=== PATIENT | male | born 1965 | race Hispanic/Latino ===

== ENCOUNTER 2018-03-26 15:04 | Observation (INO) | payer BC ==
[2018-03-26 15:34] LABS: #Basophils 0.1 thou/uL (0.0-0.2); #Eosinphils 0.2 thou/uL (0.0-0.7); #Lymphocytes 3.2 thou/uL (1.20-3.40); #Monocytes 0.5 thou/uL (0.11-0.59); #Neutrophils 4.7 thou/uL (1.40-6.50); %Basophils 1.2 % (0.0-1.0); %Eosinophils 2.2 % (0.0-10.0); %Lymphocytes 36.9 % (21.0-51.0); %Monocytes 5.6 % (0.0-10.0); %Neutrophils 54.2 % (42.0-75.0); Hemoglobin 18.1 g/dL (14.0-18.0); Mean Corpuscular HGB CONC 34.1 g/dL (32.0-36.0); Mean Corpuscular Hemoglobin 33.7 pg (27.0-31.0); Mean Corpuscular Volume 98.7 fL (78.0-98.0); Platelet Count 320 thou/uL (130-400); RBC Distribution Width 11.6 % (11.5-14.5); Red Blood Cell (RBC) Count 5.37 mill/uL (4.70-6.10); White Blood Cell (WBC) Count 8.7 thou/uL (4.8-10.8)
[2018-03-26] MEDS ORDERED: Nitroglycerin 2% Ointment 1 INCH/1 GM Packet ONE (15:53)
[2018-03-26 15:58] LABS: ALT (SGPT) 43 U/L (8-55); AST (SGOT) 30 U/L (5-34); Alkaline Phosphatase 85 U/L (40-150); Anion Gap 14 mmol/L (10-20); BUN (Urea Nitrogen) 17 mg/dL (8.4-25.7); Bilirubin, Total 0.8 mg/dL (0.2-1.2); Calc. Creatinine Clearance 0 mL/min (70-130); Calcium 10.7 mg/dL (7.8-10.44); Carbon Dioxide 25 mmol/L (22-29); Chloride 105 mmol/L (98-107); Estimated GFR-MDRD 78; Globulin 3.5 g/dL (2.4-3.5); Glucose 123 mg/dL (70-105); Potassium 4.4 mmol/L (3.5-5.1); Protein, Total 8.5 g/dL (6.0-8.3); Sodium 140 mmol/L (136-145)
[2018-03-26 16:02] LABS: CKMB 1.5 ng/mL (0-6.6); Troponin I 0.097 ng/mL (< 0.028)
--- NOTE | 2018-03-26 16:05 | RAD ---
CHEST ONE VIEW: 03/26/18 HISTORY: Pain. COMPARISON: None. FINDINGS: Portable upright chest: Normal cardiac silhouette. The lung volumes are slightly diminished. No consolidation or mass. No pne umothorax or osseous abnormalities. IMPRESSION: No acute cardiopulmonary process. POS: [facility]
[2018-03-26] MEDS ORDERED: Ketorolac Tromethamine 30 MG/ML VIAL ONE (16:30)
[2018-03-26 17:48] LABS: Acetaminophen Less than 6.0 mcg/mL (10.0-30.0); Alcohol Less than 10 mg/dL (Less than 10); Salicylate Less than 8.0 mg/dL (15.0-30.0)
[2018-03-26 18:19] LABS: Amphetamine Not Detected (NotDetected); Barbiturates Screen Not Detected (NotDetected); Benzodiazepine Screen Not Detected (NotDetected); Cocaine Metabolite Screen Not Detected (NotDetected); Medtox Control Line Valid? VALID (VALID); Medtox Reader # READER 1; Methadone Not Detected (NotDetected); Methamphetamine Not Detected (NotDetected); Opiate Screen Not Detected (NotDetected); Oxycodone Screen Not Detected (NotDetected); Phencyclidine (PCP) Not Detected (NotDetected); THC/Cannabinoid Screen Not Detected (NotDetected); Tricyclic Screen Not Detected (NotDetected)
[2018-03-26] MEDS ORDERED: Guaifenesin DM 100-10/5 ML UDCUP PO PRN (18:30)
[2018-03-26] MEDS ORDERED: Acetaminophen 325 MG TAB PO PRN (18:30)
[2018-03-26] MEDS ORDERED: Clopidogrel Bisulfate 300 MG TAB PO SCH (18:30)
[2018-03-26 18:49] LABS: Cardiac Risk 4.7 (Less than 4.5)
[2018-03-26 18:53] LABS: Troponin I 0.091 ng/mL (< 0.028)
[2018-03-26 21:57] VITALS: BMI 29.2
[2018-03-26 22:13] LABS: Troponin I 0.092 ng/mL (< 0.028)
[2018-03-26] MEDS: Pravastatin Sodium 20 MG TAB PO SCH (23:09)
[2018-03-26] MEDS: Metoprolol Tartrate 25 MG TAB PO SCH (23:09)
[2018-03-26] MEDS: Famotidine 20 MG TAB PO SCH (23:09)
[2018-03-26] MEDS: Nitroglycerin 2% Ointment 1 INCH/1 GM Packet TOP SCH (23:10)
[2018-03-26] MEDS: Sodium Chloride 0.9% 1,000 ML IV SCH (23:17)
--- NOTE | 2018-03-27 01:16 | HP ---
REASON FOR ADMISSION: Chest pain. HISTORY OF PRESENT ILLNESS: The patient gives history of retrosternal chest pain from the last 3 days. These pains come on irrespective of exertion. He in fact had gone to [place], [place] on 03/23 and was under observation for a night. They ruled him out with enzymes and discharged him. He has no cough or fever. No complaints of PND or orthopnea. PAST MEDICAL AND SURGICAL HISTORY: He has had prior stress test done 2 years back and a stent placed by Dr. Mcdaniel. He last saw Jonas in November. Hypertension, dyslipidemia, gout. CURRENT MEDICATIONS: Patient is on Lopressor extended release 50 mg daily, Diovan 320 mg daily, allopurinol 100 mg p.o. daily, Vascepa 1 gram p.o. twice daily, Pravachol 20 mg p.o. daily. ALLERGIES: No known drug allergies. PERSONAL HISTORY: Does not abuse alcohol or drugs. No history of smoking. 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 FAMILY HISTORY: Mother of [place] at the age of 78 years. Father was alcoholic and in his 50s from its complications. CODE STATUS: FULL. REVIEW OF SYSTEMS: The following complete review of systems was negative, unless otherwise mentioned in the HPI or below: Constitutional: Weight loss or gain, ability to conduct usual activities. Skin: Rash, itching. Eyes: Double vision, pain. ENT/Mouth: Nose bleeding, neck stiffness, pain, tenderness. Cardiovascular: Palpitations, dyspnea on exertion, orthopnea. Respiratory: Shortness of breath, wheezing, cough, hemoptysis, fever or night sweats. Gastrointestinal: Poor appetite, abdominal pain, heartburn, nausea, vomiting, constipation, or diarrhea. Genitourinary: Urgency, frequency, dysuria, nocturia. Musculoskeletal: Pain, swelling. Neurologic/Psychiatric: Anxiety, depression. Allergy/Immunologic: Skin rash, bleeding tendency. PHYSICAL EXAMINATION: GENERAL: The patient is a 52-year-old male who is currently chest pain free. VITAL SIGNS: Blood pressure 170/90, pulse 66 per minute, respiratory rate 20 per minute, temperature 98.4 degrees Fahrenheit, saturating 98% on room air. NECK: Supple. No elevated JVD. HEENT: Eyes: Extraocular muscles intact. Pupils reacting to light. Oral cavity mucous membranes are moist. No exudates or congestion. CARDIOVASCULAR: S1, S2 heard. Regular rhythm. RESPIRATORY: Air entry 1+ bilaterally. No rales or rhonchi. ABDOMEN: Soft, bowel sounds heard. No tenderness, rigidity, or guarding. EXTREMITIES: No peripheral edema or calf tenderness. VASCULAR SYSTEM: Peripheral pulses 2+ bilateral. No ischemic ulcerations or gangrene. CENTRAL NERVOUS SYSTEM: No gross focal deficits noted. Patient is alert, awake , oriented well. PSYCHIATRIC: The patient's mood is euthymic. No hallucinations or delusions. LABORATORY AND X-RAY FINDINGS: Troponin I was 0.09, CK-MB 1.5, albumin 5.0, BUN 17, creatinine 1.0, serum glucose 123. Electrolytes are stable. White count of 8, H&H 18 and 53, platelet count is 320,000 with 54% neutrophils. Chest x-ray done shows no acute cardiopulmonary abnormalities. EKG done shows normal sinus rhythm at 75 beats per minute. There is poor R-wave progression and nonspecific ST-T wave changes. CLINICAL IMPRESSION AND PLAN: The patient will be under observation on telemetry for chest pain with indeterminate cardiac enzymes and prior history of a stent placed [address] Mcdaniel. The patient has had chest pain for the last 3 days now off and on. In view of this history, we will obtain Cardiology consultation as well. He is not sure if he is taking aspirin. He does not take Plavix or Brilinta. We will place him on normal saline at 60 mL per hour and nitro paste half inch q.8 hourly, Lopressor 12.5 mg twice daily along with a full dose of Plavix and 75 mg from tomorrow and aspirin as well. We will continue his Pravachol and Diovan at 160 mg daily. We will obtain echo with 2D Doppler for LV function in view of indeterminate cardiac enzymes and prior coronary artery disease and will obtain a Cardiolite stress test. He will be kept n.p.o. after midnight. JODI
[2018-03-27] MEDS: Nitroglycerin 2% Ointment 1 INCH/1 GM Packet TOP SCH (05:30)
[2018-03-27 05:43] LABS: #Basophils 0.1 thou/uL (0.0-0.2); #Eosinphils 0.4 thou/uL (0.0-0.7); #Lymphocytes 3.6 thou/uL (1.20-3.40); #Monocytes 0.5 thou/uL (0.11-0.59); #Neutrophils 5.4 thou/uL (1.40-6.50); %Basophils 0.9 % (0.0-1.0); %Eosinophils 3.9 % (0.0-10.0); %Lymphocytes 35.7 % (21.0-51.0); %Monocytes 5.3 % (0.0-10.0); %Neutrophils 54.2 % (42.0-75.0); Mean Corpuscular HGB CONC 33.4 g/dL (32.0-36.0); Mean Corpuscular Hemoglobin 33.1 pg (27.0-31.0); Mean Corpuscular Volume 99.2 fL (78.0-98.0); Mean Platelet Volume 7.2 fL (7.4-10.4); Platelet Count 297 thou/uL (130-400); RBC Distribution Width 11.5 % (11.5-14.5); Red Blood Cell (RBC) Count 4.84 mill/uL (4.70-6.10)
[2018-03-27 05:45] LABS: Anion Gap 12 mmol/L (10-20); BUN (Urea Nitrogen) 22 mg/dL (8.4-25.7); Calc. Creatinine Clearance 113 mL/min (70-130); Calcium 9.7 mg/dL (7.8-10.44); Carbon Dioxide 25 mmol/L (22-29); Cardiac Risk 4.6 (Less than 4.5); Chloride 106 mmol/L (98-107); Cholesterol 174 mg/dl (< 200 Desired); Estimated GFR-MDRD Greater than 90; Glucose 112 mg/dL (70-105); HDL Cholesterol 38 mg/dL (>60 Neg Risk); LDL Cholesterol, Calculated 104 mg/dL; Potassium 3.9 mmol/L (3.5-5.1); Sodium 139 mmol/L (136-145); Triglycerides 161 mg/dL (Less than 150)
[2018-03-27] MEDS ORDERED: Enoxaparin Sodium 40 MG/0.4 ML SYRINGE SC SCH (09:00)
[2018-03-27] MEDS ORDERED: Clopidogrel Bisulfate 75 MG TAB PO SCH (09:00)
--- NOTE | 2018-03-27 11:28 | CON ---
DATE OF CONSULTATION: 03/27/2018 HISTORY OF PRESENT ILLNESS: Patient is a 52-year-old gentleman with a history of coronary artery dis ease who presented with weakness and chest discomfort. The patient has recent history of coronary ar trudy disease. He states approximately two years ago he underwent cardiac catheterization and PTCA an d stent placement by Dr. Mcdaniel. The patient at that time presented with progressive angina. The pa belkis has been doing completely free of chest discomfort. He states that he was at work when he sudd enly felt extremely weak and lightheaded. The patient developed midsternal chest discomfort. He toma t to the local emergency room. He was found to be markedly hypertensive. The patient states that he received medication which lowered his blood pressure and his chest pain resolved. The patient denie s have any further chest discomfort. PAST MEDICAL HISTORY: Significant for, 1. Hypertension. 2. Coronary artery disease. 3. Dyslipidemia. PAST SURGICAL HISTORY: None. FAMILY HISTORY: Positive family history of heart disease. MEDICATIONS: Diovan 320 b.i.d., Vascepa 2 mg b.i.d., allopurinol 100 daily, metoprolol 50 XL daily, Pravachol 20. REVIEW OF SYSTEMS: Ten-point system otherwise unremarkable. No history of easy bruising or bleeding , bright red blood per rectum, hematuria or dysuria. PHYSICAL EXAMINATION: GENERAL: This is a well-developed gentleman in no acute distress. VITAL SIGNS: Blood pressure 144/83. NECK: No jugular distention, no carotid bruits. LUNGS: Clear to auscultation. HEART: Regular rate and rhythm, normal S1, S2, no murmurs. ABDOMEN: Nondistended. EXTREMITIES: Showed no edema. SKIN: Warm and dry. NEUROLOGIC: Nonfocal. VASCULAR: Radial pulses are 2+. LABORATORY DATA AND IMAGING DATA: White blood count 10.0, hemoglobin 16.0, hematocrit 41.1, platelet s 297. Sodium was 139, potassium 3.9, chloride 106, bicarbonate 25, BUN 22, creatinine is 0.86, trop onin was 0.092. His EKG reveals him to have normal sinus rhythm with left axis deviation, otherwise normal ECG. IMPRESSION: 1. Hypertensive crisis. 2. Chest pain. 3. History of percutaneous transluminal coronary angioplasty and stent placement. 4. Dyslipidemia. This gentleman presents with markedly elevated blood pressure and chest discomfort. His EKG showed n o acute changes. The patient is scheduled to undergo a Lexiscan stress test. We will see if there i s any evidence of ischemia. From a cardiac standpoint, the patient does a very physical job and prob ably has elevated blood pressure. We will add Norvasc to his medical regimen. We will follow this p atient with you through his hospitalization.
[2018-03-27] MEDS: Famotidine 20 MG TAB PO SCH ×2 (11:34→20:41)
[2018-03-27] MEDS: Allopurinol 100 MG TAB PO SCH (11:34)
[2018-03-27] MEDS: Valsartan 80 MG TAB PO SCH (11:34)
[2018-03-27] MEDS: Metoprolol Tartrate 25 MG TAB PO SCH ×2 (11:35→20:40)
[2018-03-27] MEDS: Aspirin 325 MG TAB PO SCH (11:35)
--- NOTE | 2018-03-27 11:50 | PDOC.PN ---
- Subjective Encounter Start Date: 03/27/18 Encounter Start Time: 10:00 Subjective: is getting stress test done, no chest pain or sob now - Objective Resuscitation Status: Resuscitation Status FULL:Full Resuscitation MAR Reviewed: Yes Vital Signs & Weight: Vital Signs (12 hours) Temp Pulse Resp BP Pulse Ox 03/27/18 07:49 98.5 F 70 18 144/83 H 93 L 03/27/18 04:54 98.0 F 88 16 132/87 94 L Weight Weight 175 lb 9.6 oz I&O: 03/26/18 03/27/18 03/28/18 06:59 06:59 06:59 Intake Total 609 Balance 609 Result Diagrams: 03/27/18 05:03 03/27/18 05:03 Phys Exam - Physical Examination HEENT: PERRLA, moist MMs Neck: no JVD, supple Respiratory: no wheezing, no rales Cardiovascular: RRR, no significant murmur Gastrointestinal: soft, non-tender, positive bowel sounds Musculoskeletal: no edema, pulses present Neurological: non-focal, moves all 4 limbs Psychiatric: normal affect, A&O x 3 Dx/Plan (1) Chest pain Code(s): R07.9 - CHEST PAIN, UNSPECIFIED Status: Acute Qualifiers: Chest pain type: unspecified Qualified Code(s): R07.9 - Chest pain, unspecified (2) CAD (coronary artery disease) Code(s): I25.10 - ATHSCL HEART DISEASE OF [place] CORONARY ARTERY W/O ANG PCTRS Status: Chronic Qualifiers: Coronary Disease-Associated Artery/Lesion type: [place] artery [place] vs. transplanted heart: [place] heart Associated angina: with stable angina Qualified Code(s): I25.118 - Atherosclerotic heart disease of [place] coronary artery with other forms of angina pectoris (3) Hypertensive urgency Code(s): I16.0 - HYPERTENSIVE URGENCY Status: Acute (4) Dyslipidemia Code(s): E78.5 - HYPERLIPIDEMIA, UNSPECIFIED Status: Chronic - Plan await stress test results -: has indeterminate enzymes -: dc plan per cardiology advice -: is on asp, plavix, pravastatin, lopressor, cozaar and norvasc * . Review of Systems - Medications/Allergies Allergies/Adverse Reactions: Allergies Allergy/AdvReac Type Severity Reaction Status Date / Time No Known Drug Allergies Allergy Verified 03/27/18 04:24 Medications: Current Medications Acetaminophen (Tylenol) 650 mg PO Q4H PRN PRN Reason: Headache/Fever/Mild Pain (1-3) Last Admin: 03/26/18 23:23 Dose: 650 mg Allopurinol (Zyloprim) 100 mg PO DAILY [facility] Last Admin: 03/27/18 11:34 Dose: 100 mg Amlodipine Besylate (Norvasc) 5 mg PO 1200 [facility] Last Admin: 03/27/18 11:34 Dose: 5 mg Aspirin (Aspirin) 325 mg PO DAILY [facility] Last Admin: 03/27/18 11:35 Dose: 325 mg Enoxaparin Sodium (Lovenox) 40 mg SC 0900 [facility] Famotidine (Pepcid) 20 mg PO BID [facility] Last Admin: 03/27/18 11:34 Dose: 20 mg Guaifenesin/Dextromethorphan (Robitussin Dm) 15 ml PO Q4H PRN PRN Reason: Cough Sodium Chloride (Normal Saline 0.9%) 1,000 mls @ 60 mls/hr IV .[id number] [facility] Stop: 03/28/18 08:27 Last Admin: 03/26/18 23:17 Dose: 1,000 mls Metoprolol Tartrate (Lopressor) 12.5 mg PO BID [facility] Last Admin: 03/27/18 11:35 Dose: 12.5 mg Pravastatin Sodium (Pravachol) 20 mg PO HS [facility] Last Admin: 03/26/18 23:09 Dose: 20 mg Sodium Chloride (Flush - Normal Saline) 10 ml IVF Q12HR [facility] Last Admin: 03/27/18 11:35 Dose: 10 ml Sodium Chloride (Flush - Normal Saline) 10 ml IVF PRN PRN PRN Reason: Saline Flush Valsartan (Diovan) 160 mg PO DAILY [facility] Last Admin: 03/27/18 11:34 Dose: 160 mg
[2018-03-27] MEDS ORDERED: Amlodipine 5 MG TAB PO SCH (12:00)
--- NOTE | 2018-03-27 12:23 | NM ---
CARDIAC SPECT: CLINICAL HISTORY: 52-year-old female with chest pain, coronary artery disease, hypertension, and dyslipidemia. TECHNIQUE: A myocardial perfusion scan was performed using the single isotope one day protocol with technetium-9 9m sestamibi. 11 mCi were injected intravenously for the rest exam followed by 33 mCi for the stress exam. Pharmacologic stress with Adenosine was monitored and interpreted by Dr. Rosas. FINDINGS: There is a fixed defect in the inferolateral wall. No reversible defects are seen. GATED SPECT LVEF: 54%. WALL MOTION EXAM: Mild inferolateral wall hypokinesis. IMPRESSION: No evidence of reversible ischemia. POS: [facility]
[2018-03-27] MEDS ORDERED: Iopamidol 370 76% 50 ML VIAL FS ONE (12:59)
[2018-03-27] MEDS ORDERED: Iopamidol 370 76% 100 ML VIAL ONE (12:59)
[2018-03-27] MEDS ORDERED: Communication Order-Pharmacy FS SCH (13:30)
[2018-03-27] MEDS ORDERED: Lidocaine 1% (PF) 30 ML VIAL ONE (13:32)
[2018-03-27] MEDS ORDERED: Midazolam HCl 2 mg/2 ml Vial ONE (14:02)
[2018-03-27] MEDS ORDERED: Fentanyl 100 MCG/2 ML VIAL ONE (14:02)
[2018-03-27] MEDS ORDERED: Nitroglycerin 0.4 MG TAB (25 Tab Bottle) SL PRN (14:53)
[2018-03-27] MEDS ORDERED: Acetaminophen/Codeine 30-300mg Tablet PO PRN ×2 (14:53)
[2018-03-27] MEDS ORDERED: traMADol HCl 50 MG TAB PO PRN (14:53)
[2018-03-27] MEDS ORDERED: Sodium Chloride 0.9% 200 ML IV SCH (15:00)
[2018-03-27] MEDS ORDERED: ADENOSINE 60 MG/20 ML VIAL ONE (15:57)
[2018-03-27] MEDS: Sodium Chloride 0.9% 1,000 ML IV SCH (16:57)
[2018-03-27] MEDS: Pravastatin Sodium 20 MG TAB PO SCH (20:41)
[2018-03-28 07:58] VITALS: BP 142/67; TEMP 98.4
[2018-03-28] MEDS: Famotidine 20 MG TAB PO SCH (08:40)
[2018-03-28] MEDS: Metoprolol Tartrate 25 MG TAB PO SCH (08:40)
[2018-03-28] MEDS: Valsartan 80 MG TAB PO SCH (08:40)
[2018-03-28] MEDS: Aspirin 325 MG TAB PO SCH (08:40)
[2018-03-28] MEDS: Allopurinol 100 MG TAB PO SCH (08:40)
--- NOTE | 2018-03-28 11:54 | PDOC.PN ---
- Subjective Encounter Start Date: 03/28/18 Encounter Start Time: 09:45 Subjective: no chest pain or sob -: feels better - Objective Resuscitation Status: Resuscitation Status FULL:Full Resuscitation MAR Reviewed: Yes Vital Signs & Weight: Vital Signs (12 hours) Temp Pulse Resp BP Pulse Ox 03/28/18 07:40 98.4 F 72 20 142/67 H 93 L 03/28/18 05:54 94 L 03/28/18 03:59 98.3 F 65 16 136/76 94 L Weight Weight 178 lb 3.2 oz I&O: 03/27/18 03/28/18 03/29/18 06:59 06:59 06:59 Intake Total 609 2199 480 Output Total 1225 Balance 609 974 480 Result Diagrams: 03/27/18 05:03 03/27/18 05:03 Phys Exam - Physical Examination HEENT: PERRLA, moist MMs Neck: no JVD, supple Respiratory: no wheezing, no rales Cardiovascular: RRR, no significant murmur Gastrointestinal: soft, non-tender, positive bowel sounds Musculoskeletal: no edema, pulses present Neurological: non-focal, moves all 4 limbs Psychiatric: normal affect, A&O x 3 Dx/Plan (1) Chest pain Code(s): R07.9 - CHEST PAIN, UNSPECIFIED Status: Acute Qualifiers: Chest pain type: unspecified Qualified Code(s): R07.9 - Chest pain, unspecified (2) CAD (coronary artery disease) Code(s): I25.10 - ATHSCL HEART DISEASE OF [place] CORONARY ARTERY W/O ANG PCTRS Status: Chronic Qualifiers: Coronary Disease-Associated Artery/Lesion type: [place] artery [place] vs. transplanted heart: [place] heart Associated angina: with stable angina Qualified Code(s): I25.118 - Atherosclerotic heart disease of [place] coronary artery with other forms of angina pectoris Comment: prior stent in rca (3) Hypertensive urgency Code(s): I16.0 - HYPERTENSIVE URGENCY Status: Resolved (4) Dyslipidemia Code(s): E78.5 - HYPERLIPIDEMIA, UNSPECIFIED Status: Chronic - Plan cath showed patent rca stent -: to continue asp, lopressor, diovan and add norvasc -: is cleared for dc by -: to f/u with in 4 weeks * . Review of Systems - Medications/Allergies Allergies/Adverse Reactions: Allergies Allergy/AdvReac Type Severity Reaction Status Date / Time No Known Drug Allergies Allergy Verified 03/27/18 04:24
[2018-03-28] MEDS ORDERED: Amlodipine 10 MG TAB PO SCH (12:00)
--- NOTE | 2018-03-28 18:09 | EKG ---
Test Reason : Blood Pressure : / mmHG Vent. Rate : 075 BPM Atrial Rate : 075 BPM P-R Int : 126 ms QRS Dur : 088 ms QT Int : 368 ms P-R-T Axes : 021 -31 108 degrees QTc Int : 410 ms Normal sinus rhythm Left axis deviation Abnormal QRS-T angle, consider primary T wave abnormality Abnormal ECG Confirmed by ANALISA CAMILO D.O. ([id number]), fashion editor JAVIER OLEARY ([id number] on 03/28/2018 6:09:10 PM Referred By: Confirmed By:ANALISA CAMILO D.O.
--- NOTE | 2018-03-28 23:49 | DIS ---
DATE OF ADMISSION: 03/26/2018 DATE OF DISCHARGE: 03/28/2018 DISCHARGE DISPOSITION: To home. PRIMARY DISCHARGE DIAGNOSES: 1. Chest pain, resolved. 2. Prior history of stent in right coronary artery. 3. Hypertensive urgency, resolved. 4. Dyslipidemia. PROCEDURES DONE DURING HOSPITALIZATION: The patient had coronary angiogram done by Dr. Rosas, which showed patent stent in the proximal RCA. His left main coronary artery, LAD, and left circumflex were all within normal limits. Echo with 2D Doppler done showed an EF of 45%-50%. Nuclear stress test done on 03/27/2018 showed no reversible ischemia. There was mild inferolateral wall hypokinesis. Ejection fraction was 54%. H&H 16 and 48, platelet count 297. Troponin I was indeterminate peaking up to 0.097, CK-MB 1.5, total cholesterol 174, triglycerides 161, LDL 104, HDL 38. Urine drug screen was negative. DISCHARGE MEDICATIONS: Aspirin 325 mg p.o. daily, Norvasc 10 mg p.o. daily, valsartan 320 mg p.o. daily, Pravachol 20 mg p.o. q.p.m., Toprol-XL 50 mg daily , metformin 500 mg p.o. daily, Vascepa 2 grams p.o. twice daily, allopurinol 100 mg p.o. daily. ALLERGIES: No known drug allergies. INPATIENT CONSULTATION: Dr. Rosas for Cardiology. 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 BRIEF COURSE DURING HOSPITALIZATION: The patient initially came in with complaints of chest pain from last 3 days, off and on. In view of this history and indeterminate cardiac enzymes, plus prior history of coronary artery disease with stent, the patient was placed under observation on telemetry. He has had 3 sets of cardiac enzymes done, which were all indeterminate. The patient was taken for cardiac catheterization by Dr. Rosas, which showed patent stent in the RCA, and did not reveal any stenosis or flow-limiting disease in the other vessels. He remained chest pain free. His medications were optimized for hypertensive urgency and Norvasc has been added to the current regimen. He has been cleared by Dr. Rosas for discharge. Please see a [id number] documentation on [facility] for the day of discharge. [facility]
== END 2018-03-28 11:36 | disposition home or self-care (01) ==
LOC: ERS 15:04 → ERHOLD 17:24 → 2SW 21:05
PROVIDERS: ADMIT Internal Medicine; ATTEND Internal Medicine
PROC: 4A023N7 Measurement of Cardiac Sampling and Pressure, Left Heart, Percutaneous Approach (ICD-10-PCS; principal; 2018-03-27)
PROC: B2111ZZ Fluoroscopy of Multiple Coronary Arteries using Low Osmolar Contrast (ICD-10-PCS; 2018-03-27)
DX: R07.89 Other chest pain (principal); I25.118 Atherosclerotic heart disease of native coronary artery with other forms of angina pectoris; I10 Essential (primary) hypertension; I16.9 Hypertensive crisis, unspecified; E78.5 Hyperlipidemia, unspecified; I25.2 Old myocardial infarction; E78.00 Pure hypercholesterolemia, unspecified; M10.9 Gout, unspecified; Z79.899 Other long term (current) drug therapy; Z95.5 Presence of coronary angioplasty implant and graft
CPT/HCPCS: 36415; 71045; 78452; 80048; 80053; 80061; 80306; 80307; 82553; 84484; 85025; 90471; 90686; 90732; 93005; 93017; 93306; 93458; 93798; 94760; 96361; 96374; 99152; A4216; A9500; C1769; G0008; G0009; G0378; J0153; J1644; J1885; J2001; J2250; J3010; J7050